=== PATIENT | male | born 1980 | race Caucasian/White ===

== ENCOUNTER → 2018-02-25 | Outpatient (CLI) | payer BC ==
[~2018-02-25] VITALS: Ht 175.3 cm; Wt 88.5 kg
[~2018-02-25] MED LIST: ALEVE220 MG PO
--- NOTE | ~2018-02-25 | HPC ---
[facility] [place] [address] PAIN MANAGEMENT CONSULTATION Name: OLIVE MARINELLI Room #: REG SAMIRA Sandoval#: [id number] Admission: 02/25/18 Attend Phys: Jake Castro DO Discharge: Date of : 76 Report #: [id number] THIS REPORT FOR: //name// CC: Rohan Castro The patient is a very pleasant 37-year-old gentleman seen in consultation on 02/22/2018, diagnosed with symptomatic lumbar radiculopathy with left L4 radicular pain. Presents to pain clinic today for left L4-L5 transforaminal epidural injection under fluoroscopy. Rates his subjective pain score 8 on a VAS. Pain is in the left L4 distribution. We elected to proceed with epidural injection as we discussed at that visit. The patient has continued to take Naprosyn [address] Langford. ASSESSMENT: Symptomatic lumbar radiculopathy. PROCEDURE: Left L4-L5 transforaminal epidural injection under fluoroscopy. PROCEDURE NOTE: After both written and informed consent was obtained including risk of spinal cord damage, infection, increased pain and paralysis, the patient agreed to proceed. The patient was taken to the fluoroscopy suite, placed in a prone position with appropriate abdominal bolstering. After sterile prep with ChloraPrep and sterile drape, a skin wheal with 1% Xylocaine was raised. A 22 gauge 4-1/2 inch epidural Tuohy needle was inserted. From an oblique approach into the posterior-superior aspect of the left L4-L5 neural foramen with continuous pressure on the glass syringe plunger for loss of resistance. Glass syringe was filled with 2 cc of 0.1 Xylocaine. The glass loss of resistance syringe was removed. A low volume extension tubing was connected, negative aspiration was accomplished for cerebrospinal fluid or blood. 1 mL of Omnipaque was injected which showed spread both within the epidural space and laterally along the nerve root. This was followed with 80 mg of triamcinolone plus 1 mL of 1.5% preservative-free Xylocaine. Needle was partially withdrawn, 0.5 mL of Xylocaine was injected to clear the needle and the needle was removed. The area was cleansed, band-aid was applied. The patient was allowed to ambulate to the recovery room, discharged in good and stable condition. Please note, the patient noted significant incremental improvement in baseline pain, in fact, noted pain was a 3 on a VAS on discharge. Follow up in 3 weeks to reevaluate. If he is still having ongoing symptoms, we will seek authorization for repeat epidural injection at 30 days as required by [facility] (no more than one injection in any 30-day cycle). <ELECTRONICALLY SIGNED> By: Jake Castro DO 02/27/18 [id number] Jake Castro DO /nt
[2018-02-25 09:44] VITALS: BP 107/72
== END | disposition home or self-care (01) ==
LOC: PAIN 06:06
DX: M54.16 Radiculopathy, lumbar region (principal); G89.29 Other chronic pain; Z79.891 Long term (current) use of opiate analgesic; Z98.890 Other specified postprocedural states